=== PATIENT | female | born 1995 | race Caucasian/White ===

== ENCOUNTER 2018-02-18 18:37 | Inpatient (IN) | payer MEDICAID ==
[2018-02-18 20:13] LABS: ADD UMIC YES; UR ASCORBIC ACID NEGATIVE (NEGATIVE); UR BACTERIA FEW /HPF (NONE SEEN); UR BILIRUBIN (Dip) NEGATIVE (NEGATIVE); UR BLOOD (Dip) NEGATIVE (NEGATIVE); UR CLARITY CLEAR (CLEAR); UR COLOR STRAW (YELLOW); UR GLUCOSE (Dip) 2+ mg/dL (NEGATIVE); UR KETONES (Dip) NEGATIVE (NEGATIVE); UR LEUKOCYTE ESTERASE (Dip) 3+ Leu/ul (NEGATIVE); UR NITRITE (Dip) NEGATIVE (NEGATIVE); UR RBC 1 /HPF (0-5); UR SPECIFIC GRAVITY (Dip) 1.006 (1.003-1.030); UR SQUAMOUS EPITHELIAL CELL FEW /HPF (FEW); UR TOTAL PROTEIN (Dip) NEGATIVE (NEGATIVE); UR UROBILINOGEN (Dip) NEGATIVE (NEGATIVE); UR WBC 3 /HPF (0-5)
[2018-02-18] MEDS: LACTATED RINGER'S 1,000 ML IV ×2 (20:15→20:55)
[2018-02-18] MEDS: ACETAMINOPHEN 500 MG TAB PO (22:14)
[2018-02-18] MEDS ORDERED: LACTATED RINGER'S 1,000 ML IV (23:36)
[2018-02-18] MEDS ORDERED: DEXTROSE 50% 50 ML SYRINGE IV ×2 (23:45)
[2018-02-18] MEDS ORDERED: GLUCOSE GEL 15 GRAM TUBE PO ×2 (23:45)
[2018-02-18] MEDS ORDERED: GLUCOSE GEL 15 GRAM TUBE BUCCAL (23:45)
[2018-02-18] MEDS ORDERED: GLUCAGON 1 MG INJ IM (23:45)
[2018-02-19 00:34] LABS: ADD MAN DIFF? NO
[2018-02-19 00:37] LABS: BASOPHILS % 0.2 % (0.0-2.0); EOSINOPHILS # 0.1 10^3/ul (0.0-0.5); EOSINOPHILS % 0.5 % (0.0-7.0); HEMATOCRIT 34.2 % (37.0-47.0); HEMOGLOBIN 11.2 g/dl (12.0-16.0); LYMPHOCYTES # 2.1 10^3/ul (0.8-2.9); MEAN CORPUSCULAR HEMOGLOBIN 26.6 pg (29.0-33.0); MEAN CORPUSCULAR HGB CONC 32.7 g/dl (32.0-37.0); MEAN CORPUSCULAR VOLUME 81.2 fl (82.0-101.0); MEAN PLATELET VOLUME 11.1 fl (7.4-10.4); MONOCYTE # 1.2 10^3/ul (0.3-0.9); MONOCYTES % 9.6 % (0.0-11.0); NEUTROPHILS % 72.1 % (39.0-77.0); PLATELET COUNT 220 10^3/UL (140-415); RED BLOOD COUNT 4.21 10^6/ul (4.20-5.40); RED CELL DISTRIBUTION WIDTH 13.6 % (11.5-14.5)
[2018-02-19 00:37] LABS: WHITE BLOOD COUNT 12.5 10^3/ul (4.8-10.8)
[2018-02-19] MEDS: ACCU-CHEK XX ×6 (01:00→09:17)
[2018-02-19] MEDS: TERBUTALINE 1 MG/ML INJ SC (02:05)
[2018-02-19] MEDS: INSULIN ASPART [NOVOLOG] 3 ML PEN SC ×3 (04:39→09:00)
[2018-02-19] MEDS: LACTATED RINGER'S 1,000 ML IV (04:45)
== END 2018-02-19 10:25 | disposition home or self-care (01) | DRG 833 ==
LOC: OBT 18:37 → L-D 18:38 → OBT 23:31 → L-D 23:31
DX: O47.1 False labor at or after 37 completed weeks of gestation (principal); O24.419 Gestational diabetes mellitus in pregnancy, unspecified control; Z3A.37 37 weeks gestation of pregnancy
CPT/HCPCS: 36415; 76818; 81001; 82962; 85025; 86850; 86900; 86901; 96360; 96361; 96372

== ENCOUNTER 2018-02-25 10:34 | Inpatient (IN) | payer MEDICAID ==
[2018-02-25] MEDS: LACTATED RINGER'S 1,000 ML IV (13:27)
[2018-02-25] MEDS ORDERED: METHYLERGONOVINE 0.2 MG INJ IM ×2 (13:30→20:30)
[2018-02-25] MEDS ORDERED: CARBOPROST 250 MCG INJ IM ×2 (13:30→20:30)
[2018-02-25] MEDS ORDERED: CEFAZOLIN 2 GM/50 ML (PMX) 50 ML IVPB (13:30)
[2018-02-25] MEDS ORDERED: MISOPROSTOL 200 MCG TAB PR ×2 (13:30→20:30)
[2018-02-25] MEDS: AMPICILLIN 2 GM/NS (PMX) 100 ML IV (13:34)
[2018-02-25 13:43] LABS: ADD MAN DIFF? NO
[2018-02-25 13:45] LABS: WHITE BLOOD COUNT 11.5 10^3/ul (4.8-10.8)
[2018-02-25 13:45] LABS: BASOPHILS % 0.2 % (0.0-2.0); EOSINOPHILS # 0.1 10^3/ul (0.0-0.5); EOSINOPHILS % 0.5 % (0.0-7.0); HEMATOCRIT 36.2 % (37.0-47.0); HEMOGLOBIN 11.7 g/dl (12.0-16.0); LYMPHOCYTES # 1.8 10^3/ul (0.8-2.9); LYMPHOCYTES % 15.5 % (15.0-51.0); MEAN CORPUSCULAR HEMOGLOBIN 26.3 pg (29.0-33.0); MEAN CORPUSCULAR HGB CONC 32.3 g/dl (32.0-37.0); MEAN CORPUSCULAR VOLUME 81.3 fl (82.0-101.0); MONOCYTES % 8.6 % (0.0-11.0); NEUTROPHIL # 8.5 10^3/ul (1.6-7.5); NEUTROPHILS % 74.2 % (39.0-77.0); NUCLEATED RED BLOOD CELLS% 0.2 /100WBC (0.0-0.0); PLATELET COUNT 254 10^3/UL (140-415); RED BLOOD COUNT 4.45 10^6/ul (4.20-5.40); RED CELL DISTRIBUTION WIDTH 13.8 % (11.5-14.5)
[2018-02-25 14:04] LABS: GLUCOSE 118 mg/dl (70-220)
[2018-02-25 14:05] LABS: INR 0.94; PROTIME 12.7 Sec (11.9-14.9)
[2018-02-25 14:06] LABS: PARTIAL THROMBOPLASTIN TIME 26.5 Sec (23.0-35.0)
[2018-02-25] MEDS: DEXTROSE 5%-LR 1,000 ML IV (15:12)
[2018-02-25] MEDS ORDERED: OXYTOCIN 10 UNIT INJ ×2 (15:42→17:04)
[2018-02-25] MEDS ORDERED: EPHEDrine SULFATE 50 MG/5 ML SYG (15:42)
[2018-02-25] MEDS ORDERED: ONDANSETRON 4 MG INJ (15:42)
[2018-02-25] MEDS ORDERED: METOCLOPRAMIDE 10 MG INJ (15:42)
[2018-02-25] MEDS ORDERED: morphine SULFATE/PF (10 MG/10 ML) INJ (15:42)
[2018-02-25] MEDS ORDERED: OXYTOCIN 30 UNITS/LR 500 ML IV ×3 (15:42→20:30)
[2018-02-25 15:43] LABS: RAPID PLASMA REAGIN NONREACTIVE (NR)
[2018-02-25] MEDS: OXYTOCIN 30 UNITS/LR 500 ML IV ×3 (17:30→20:15)
[2018-02-25] MEDS ORDERED: EPHEDrine SULFATE 50 MG/5 ML SYG IV (18:00)
[2018-02-25] MEDS ORDERED: ONDANSETRON 4 MG INJ IV (18:00)
[2018-02-25] MEDS ORDERED: NALOXONE (0.4 MG/ML) INJ IV (18:00)
[2018-02-25] MEDS ORDERED: DIPHENHYDRAMINE 50 MG INJ IV (18:00)
[2018-02-25] MEDS ORDERED: morphine 2 MG INJ IV ×2 (18:00)
[2018-02-25] MEDS: morphine SULFATE/PF (10 MG/10 ML) INJ SPINAL (18:00)
[2018-02-25] MEDS ORDERED: METHYLERGONOVINE 0.2 MG TAB PO (20:30)
[2018-02-25] MEDS ORDERED: LANOLIN 7 GM TUBE TOP (20:30)
[2018-02-25] MEDS: SENNA/DOCUSATE NA (8.6MG/50MG) TAB PO (21:00)
[2018-02-26] MEDS: DEXTROSE 5%-LR 1,000 ML IV ×4 (00:05→20:15)
[2018-02-26] MEDS: SENNA/DOCUSATE NA (8.6MG/50MG) TAB PO ×3 (00:52→21:32)
[2018-02-26] MEDS: KETOROLAC 30 MG INJ IV ×2 (00:53→06:51)
[2018-02-26 07:52] LABS: ADD MAN DIFF? NO
[2018-02-26 08:01] LABS: BASOPHILS % 0.2 % (0.0-2.0); EOSINOPHILS % 0.3 % (0.0-7.0); HEMATOCRIT 34.3 % (37.0-47.0); HEMOGLOBIN 11.2 g/dl (12.0-16.0); LYMPHOCYTES # 1.5 10^3/ul (0.8-2.9); MEAN CORPUSCULAR HEMOGLOBIN 26.4 pg (29.0-33.0); MEAN CORPUSCULAR HGB CONC 32.7 g/dl (32.0-37.0); MEAN CORPUSCULAR VOLUME 80.7 fl (82.0-101.0); MEAN PLATELET VOLUME 10.8 fl (7.4-10.4); MONOCYTE # 0.9 10^3/ul (0.3-0.9); MONOCYTES % 7.7 % (0.0-11.0); NEUTROPHIL # 9.1 10^3/ul (1.6-7.5); NEUTROPHILS % 78.1 % (39.0-77.0); PLATELET COUNT 233 10^3/UL (140-415); RED BLOOD COUNT 4.25 10^6/ul (4.20-5.40); RED CELL DISTRIBUTION WIDTH 13.8 % (11.5-14.5)
[2018-02-26 08:01] LABS: WHITE BLOOD COUNT 11.6 10^3/ul (4.8-10.8)
[2018-02-26] MEDS: OXYCODONE/ACETAMINOPHEN (5/325) TAB PO (17:57)
[2018-02-26] MEDS: IBUPROFEN 800 MG TAB PO ×2 (17:57→21:33)
[2018-02-26] MEDS ORDERED: HYDROCODONE/APAP (5/325) TAB PO ×2 (18:00)
[2018-02-27] MEDS: OXYCODONE/ACETAMINOPHEN (5/325) TAB PO ×3 (02:04→18:00)
[2018-02-27] MEDS: DEXTROSE 5%-LR 1,000 ML IV ×3 (04:15→22:04)
[2018-02-27] MEDS: SENNA/DOCUSATE NA (8.6MG/50MG) TAB PO ×2 (09:48→23:11)
[2018-02-27] MEDS: ACCU-CHEK XX ×3 (11:20→21:00)
[2018-02-27] MEDS ORDERED: GLUCOSE GEL 15 GRAM TUBE BUCCAL ×2 (12:30→13:00)
[2018-02-27] MEDS ORDERED: GLUCAGON 1 MG INJ IM ×2 (12:30→13:00)
[2018-02-27] MEDS ORDERED: GLUCOSE GEL 15 GRAM TUBE PO ×4 (12:30→13:00)
[2018-02-27] MEDS ORDERED: DEXTROSE 50% 50 ML SYRINGE IV ×4 (12:30→13:00)
[2018-02-27] MEDS: IBUPROFEN 800 MG TAB PO ×2 (16:08→23:10)
[2018-02-27] MEDS ORDERED: INSULIN ASPART [NOVOLOG] 3 ML PEN SC (17:35)
[2018-02-27] MEDS: INSULIN ASPART [NOVOLOG] 3 ML PEN SC (18:16)
[2018-02-28] MEDS: OXYCODONE/ACETAMINOPHEN (5/325) TAB PO ×4 (01:50→20:02)
[2018-02-28] MEDS: DEXTROSE 5%-LR 1,000 ML IV (04:15)
[2018-02-28] MEDS: IBUPROFEN 800 MG TAB PO ×3 (05:46→22:18)
[2018-02-28] MEDS ORDERED: DIPHTH/TET/ACEL PERTUSS (ADULT) 0.5 ML VIAL IM* (09:00)
[2018-02-28] MEDS: SENNA/DOCUSATE NA (8.6MG/50MG) TAB PO ×2 (09:02→20:40)
[2018-02-28] MEDS: metFORMIN 500 MG TAB PO ×2 (09:02→18:02)
[2018-02-28] MEDS: ACCU-CHEK XX ×5 (19:00→20:39)
[2018-03-01] MEDS: IBUPROFEN 800 MG TAB PO ×2 (05:38→14:50)
[2018-03-01] MEDS: metFORMIN 500 MG TAB PO (08:43)
[2018-03-01] MEDS: SENNA/DOCUSATE NA (8.6MG/50MG) TAB PO (08:43)
[2018-03-01] MEDS: MEASLES,MUMPS,RUBELLA VACCINE INJ SC* (14:07)
== END 2018-03-01 15:10 | disposition home or self-care (01) | DRG 833 ==
LOC: OBT 10:34 → L-D 10:34 → OBT 13:02 → L-D 12:45 → PP1 20:13
PROVIDERS: Obstetrics & Gynecology
DX: O34.219 Maternal care for unspecified type scar from previous cesarean delivery (principal); O77.0 Labor and delivery complicated by meconium in amniotic fluid; O24.424 Gestational diabetes mellitus in childbirth, insulin controlled; Z37.0 Single live birth; Z3A.38 38 weeks gestation of pregnancy
CPT/HCPCS: 76818; 82947; 82962; 85025; 85610; 85730; 86592; 86850; 86900; 86901; 90686; 90715; 99464